=== PATIENT | male | born 1955 | race Caucasian/White ===

== ENCOUNTER → 2024-05-03 12:35 | Outpatient (REF) | payer MEDICARE, OTHER, SELFPAY | LOC: HWRAD 12:35 | PROVIDERS: ATTENDING PHYSICIAN Nurse Practitioner; FAMILY PHYSICIAN Internal Medicine | DX: J01.10 Acute frontal sinusitis, unspecified (principal); J20.9 Acute bronchitis, unspecified | CPT/HCPCS: 71046 ==

== ENCOUNTER 2024-06-03 00:15 | Inpatient (IN) | payer MEDICARE, OTHER, SELFPAY ==
[2024-06-02 21:42] VITALS: BP 147/81; BMI 38.6
[2024-06-02] MEDS: NSS 1000 IV (21:45)
[2024-06-02 22:00] VITALS: BP 145/99
[2024-06-02 22:11] LABS: % Basophils 0.4 % (0-2); % Immature Granulocytes 0.5 % (0-0.5); % Lymphocytes 4.1 % (20.5-51.1); % Monocytes 8.3 % (1.7-9.3); % Neutrophils 86.7 % (42.2-75.2); Absolute Basophils 0.1 10^3/uL (0-0.2); Absolute Immature Granulocytes 0.1 10^3/uL (0-0.05); Absolute Lymphocytes 0.6 10^3/uL (1.2-3.4); Absolute Monocytes 1.3 10^3/uL (0.1-0.6); Hematocrit 36.6 % (39.0-52.0); Hemoglobin 12.4 g/dL (13.0-18.0); Mean Corp Hgb Conc. 33.9 g/dL (33.0-37.0); Mean Corpuscular Hgb 29.5 pg (27.0-31.0); Mean Corpuscular Volume 86.9 fL (80.0-94.0); Nucleated Red Blood Cells % 0 % (-); Platelet Count 252 10^3/uL (130-400); Red Blood Cell Count 4.21 10^6/uL (4.70-6.10); Red Cell Dist. Width 14.2 % (11.5-14.5); White Blood Cell Count 15.1 10^3/uL (4.8-10.8)
--- NOTE | 2024-06-02 22:12 | ED.GENMED ---
History of Present Illness
<Reyes Morris PA-C - Last Filed: 06/02/24 23:22>
General
Chief Complaint: Weakness
Source: patient
Exam Limitations: none
Time Seen by Provider: 06/02/24 21:46
History of Present Illness
History of Present Illness:
68-year-old male type I diabetic presents via EMS from home with generalized weakness. He also states been having trouble controlling his blood sugars. He denies any notable symptoms of cough runny nose shortness of breath vomiting abdominal pain.
He denies a rash. No other complaints at this time
Phy Exam
<Reyes Morris PA-C - Last Filed: 06/02/24 23:22>
Physical Exam
Physical Exam:
General: Well-appearing male no acute respiratory distress
HEENT: Normocephalic atraumatic
Heart: Tachycardic but regular
Lungs: Clear no wheeze
Extremities: No cyanosis mild pitting edema bilateral lower extremities
Skin is warm no rash
Abdomen is soft nontender
Sepsis
<Reyes Morris PA-C - Last Filed: 06/02/24 23:22>
Sepsis Screening
Sepsis Assessment: Sepsis
Sepsis Screen
Sepsis Screen: Sepsis
Date: 06/02/24
Time: 23:22
<Bonnie Rodriguez MD - Last Filed: 06/02/24 23:26>
Sepsis Screen
Sepsis Screen: Sepsis
Date: 06/02/24
Time: 23:23
Course
<Reyes Morris PA-C - Last Filed: 06/02/24 23:22>
Orders/Labs/Results
Orders:
Orders
06/02/24 21:41
Electrocardiogram (*1) Urgent
Reason for Study: Tachycardia
06/02/24 21:42
EKG- Treatment ONCE
06/02/24 21:53
Complete Blood Count/With Diff Urgent
Comprehensive Metabolic Panel Urgent
06/02/24 22:11
CR Chest - 2 Views Urgent
Comment:
Reason For Exam: cough, fever
06/02/24 22:13
Acetaminophen [Tylenol] 1,000 mg PO NOW STA
06/02/24 22:15
COVID-19 Antigen Urgent
Source: Nasal Swab
Lactic Acid Q4H
Comment: CANCEL 2nd LACTIC ACID IF 1st LACTIC ACID IS LESS THAN 2
Urinalysis Reflex To Culture Urgent
Date Specimen was Collected: 06/02/24
Time Specimen was Collected: 22:14
Urine Microscopic Reflex Cult Urgent
Influenza A+B Rapid Molecular Urgent
ДМИТРИЙ Source: Nasal Swab
Specimen Description:
06/02/24 22:22
Blood Culture Q30M
ДМИТРИЙ Source: Blood/Venous
Specimen Description:
Blood Culture Q30M
ДМИТРИЙ Source: Blood/Venous
Specimen Description:
06/02/24 23:16
Piperacillin/Tazo 4.5 Gram [Zosyn] 4.5 gram in 100 ml IV NOW
06/02/24 23:22
Vancomycin [Vancocin] 2,000 mg 0.9% Sodium Chloride 500 ml [Nss] 500 ml IV NOW
Abnormal Lab Results
06/02/24 06/02/24
21:53 22:15
WBC 15.1 H 10^3/uL
(4.8-10.8)
RBC 4.21 L 10^6/uL
(4.70-6.10)
Hgb 12.4 L g/dL
(13.0-18.0)
Hct 36.6 L %
(39.0-52.0)
Abs Immat Gran (auto) 0.1 H 10^3/uL
(0-0.05)
Absolute Neuts (auto) 13.0 H 10^3/uL
(1.4-6.5)
Absolute Lymphs (auto) 0.6 L 10^3/uL
(1.2-3.4)
Absolute Monos (auto) 1.3 H 10^3/uL
(0.1-0.6)
Neutrophils % 86.7 H %
(42.2-75.2)
Lymphocytes % 4.1 L %
(20.5-51.1)
Sodium 134 L mmol/L
(135-145)
Carbon Dioxide 21 L mmol/L
(22-30)
Glucose 396 H mg/dl
(70-99)
Urine Ketones 3+ A
(Negative)
Ur Occult Blood Reflex 2+ A
(Negative)
Urine Bacteria (Reflex) Few A
(Negative)
Urine Glucose 4+ A
(Negative)
Urine Albumin (Reflex) 3+ A
(Neg - Trace)
06/02/24 21:53
06/02/24 21:53
Vital Signs
Initial and Last Documented VS:
Initial Vital Signs
Temp Pulse Resp BP Pulse Ox
101.4 F H 113 19 147/81 94
06/02/24 21:42 06/02/24 21:42 06/02/24 21:42 06/02/24 21:42 06/02/24 21:42
Last Documented Vital Signs
Temp Pulse Resp BP Pulse Ox
98.5 F 104 27 159/60 95
06/02/24 23:12 06/02/24 23:15 06/02/24 23:15 06/02/24 23:00 06/02/24 23:15
<Bonnie Rodriguez MD - Last Filed: 06/02/24 23:26>
Orders/Labs/Results
Orders:
Orders
06/02/24 21:41
Electrocardiogram (*1) Urgent
Reason for Study: Tachycardia
06/02/24 21:42
EKG- Treatment ONCE
06/02/24 21:53
Complete Blood Count/With Diff Urgent
Comprehensive Metabolic Panel Urgent
06/02/24 22:11
CR Chest - 2 Views Urgent
Comment:
Reason For Exam: cough, fever
06/02/24 22:13
Acetaminophen [Tylenol] 1,000 mg PO NOW STA
06/02/24 22:15
COVID-19 Antigen Urgent
Source: Nasal Swab
Lactic Acid Q4H
Comment: CANCEL 2nd LACTIC ACID IF 1st LACTIC ACID IS LESS THAN 2
Urinalysis Reflex To Culture Urgent
Date Specimen was Collected: 06/02/24
Time Specimen was Collected: 22:14
Urine Microscopic Reflex Cult Urgent
Influenza A+B Rapid Molecular Urgent
ДМИТРИЙ Source: Nasal Swab
Specimen Description:
06/02/24 22:22
Blood Culture Q30M
ДМИТРИЙ Source: Blood/Venous
Specimen Description:
Blood Culture Q30M
ДМИТРИЙ Source: Blood/Venous
Specimen Description:
06/02/24 23:16
Piperacillin/Tazo 4.5 Gram [Zosyn] 4.5 gram in 100 ml IV NOW
06/02/24 23:22
Vancomycin [Vancocin] 2,000 mg 0.9% Sodium Chloride 500 ml [Nss] 500 ml IV NOW
Abnormal Lab Results
06/02/24 06/02/24
21:53 22:15
WBC 15.1 H 10^3/uL
(4.8-10.8)
RBC 4.21 L 10^6/uL
(4.70-6.10)
Hgb 12.4 L g/dL
(13.0-18.0)
Hct 36.6 L %
(39.0-52.0)
Abs Immat Gran (auto) 0.1 H 10^3/uL
(0-0.05)
Absolute Neuts (auto) 13.0 H 10^3/uL
(1.4-6.5)
Absolute Lymphs (auto) 0.6 L 10^3/uL
(1.2-3.4)
Absolute Monos (auto) 1.3 H 10^3/uL
(0.1-0.6)
Neutrophils % 86.7 H %
(42.2-75.2)
Lymphocytes % 4.1 L %
(20.5-51.1)
Sodium 134 L mmol/L
(135-145)
Carbon Dioxide 21 L mmol/L
(22-30)
Glucose 396 H mg/dl
(70-99)
Urine Ketones 3+ A
(Negative)
Ur Occult Blood Reflex 2+ A
(Negative)
Urine Bacteria (Reflex) Few A
(Negative)
Urine Glucose 4+ A
(Negative)
Urine Albumin (Reflex) 3+ A
(Neg - Trace)
06/02/24 21:53
06/02/24 21:53
Vital Signs
Initial and Last Documented VS:
Initial Vital Signs
Temp Pulse Resp BP Pulse Ox
101.4 F H 113 19 147/81 94
06/02/24 21:42 06/02/24 21:42 06/02/24 21:42 06/02/24 21:42 06/02/24 21:42
Last Documented Vital Signs
Temp Pulse Resp BP Pulse Ox
98.5 F 104 27 159/60 95
06/02/24 23:12 06/02/24 23:15 06/02/24 23:15 06/02/24 23:00 06/02/24 23:15
<Reyes Morris PA-C - Last Filed: 06/02/24 23:22>
MDM/Problems Addressed
Differential Diagnosis Includes:
Generalized weakness. Difficulty controlling blood sugars at home. Temperature here on arrival is 101.4. He is tachycardic. Concern for possible sepsis will look for source with urine, chest x-ray COVID and flu labs and cultures.
Fluids ordered. Tylenol will be ordered for fever
<Reyes Morris PA-C - Last Filed: 06/02/24 23:22>
*Critical Care Note
Total Time (30-74mins, 75-104mins- exclusive of procedures): Not Applicable
<Reyes Morris PA-C - Last Filed: 06/02/24 23:22>
Update Note
Update Note:
Workup shows leukocytosis with left shift. Chest x-ray reviewed personally shows no obvious infiltrate pending official radiology report. Urinalysis without obvious infection but culture is pending. Blood cultures are pending. He is an
insulin-dependent diabetic concern for sepsis. Unclear origin at this time but no concerning findings of meningitis. His abdomen exam is benign. Fluids Tylenol and vancomycin and Zosyn ordered. Discussed with ED attending and will admit
ED Attending Note
<Reyes Morris PA-C - Last Filed: 06/02/24 23:22>
-
Portions of this chart may have been created with voice recognition software.� Occasional wrong word or��sound alike� substitutions may have occurred due to the inherent limitations of voice recognition software.
<Bonnie Rodriguez MD - Last Filed: 06/02/24 23:26>
ED Attending Note
Patient seen and examined by attending physician: Yes
I performed the substantive portion of visit, reviewed & personally made and approve the management plan that is documented in note by myself or PACO.: Yes
ED Attending Note:
68 yr old male with abnl (elevated and decreased) blood sugars recently, noted to be weak this afternoon such that unable to get him up without assistance. Pt noted to have fever here. Pt says he feels fine, but is tired. He denies
cough/st/rhinorrhea/neck pain/headache/rash/abd pain/n/v/cp/sob or other complnts. Labs noted leukocytosis with left shift...tachycardic, tachypneic...fever...all s/o sepsis, ?source. No skin fdingins, no pna, no uti, no meningismus, abd soft/nt.
While hyperglycemic, no AG to suggest DKA> Will medicate with sepsis protocol, close obs.
Discharge Plan
Departure
Patient Disposition: Admit
Date of Disposition: 06/02/24
Time of Disposition: 23:22
Presentation/result/management discussed w/ accepting MD/DO: Hospitalist
Discharge Problem:
Sepsis
Prescriptions:
No Action
furosemide 20 MG tablet
20 mg PO DAILYPRN PRN (Reason: leg swelling,edema,increased water wt)
ramipril 10 MG capsule
10 mg PO HS
metoprolol tartrate 25 MG tablet
25 mg PO BID
hydrocodone-acetaminophen 5-325 mg tablet
1 tab PO Q6HPRN PRN (Reason: back pain)
aspirin 81 mg Tablet,Delayed Release (Dr/Ec)
81 mg PO HS
simvastatin 40 mg Tablet
40 mg PO HS
Humulin N NPH U-100 Insulin 100 unit/mL suspension
50 unit SC HS
levothyroxine 200 mcg Tablet
200 mcg PO DAILY
insulin lispro [Humalog U-100 Insulin] 100 unit/mL solution
0 sliding scale dose SC MEALS
metaxalone 800 mg tablet
800 mg PO TIDPRN PRN (Reason: back pain)
Prevagen
1 tab PO DAILY
acetaminophen 325 MG tablet
650 mg PO Q4HPRN PRN (Reason: mild pain)
Eliquis 5 mg tablet
5 mg PO BID Qty: 60 2RF
Rx Instructions:
Start after 10mg BID pills finished
Eliquis 5 mg tablet
10 mg PO BID Qty: 28 0RF
Rx Instructions:
Start Taking this script first.
Referrals:
Dallas Rangel MD [Family Provider] -
Interventions
Interventions:
*Risk Screen - Suicide Last Done: 06/02/24 21:43
*General Assessment Last Done: 06/02/24 21:43
*Neglect/Abuse Screening Last Done: 06/02/24 21:43
*ED- Fall Risk Assessment Last Done: 06/02/24 21:43
*ED COVID-19 Vaccine History Last Done: 06/02/24 21:43
ED- Cardiac Assessment Last Done: 06/02/24 22:00
ED- Neurological Assessment Last Done: 06/02/24 22:00
ED- Pulmonary Assessment Last Done: 06/02/24 22:00
Discharge Date and Time
Print Language: TAMAZIGHT
[2024-06-02 22:14] LABS: ALT (SGPT) 24 U/L (0-50); AST (SGOT) 27 U/L (17-59); Albumin 4.1 g/dl (3.5-5.0); Alkaline Phosphatase 122 U/L (38-126); Blood Urea Nitrogen 19 mg/dl (9-20); Calcium 9.6 mg/dl (8.4-10.2); Carbon Dioxide 21 mmol/L (22-30); Chloride 102 mmol/L (98-107); Estimated Creatinine Clearance > 125 ml/min; Glucose 396 mg/dl (70-99); Potassium 4.4 mmol/L (3.5-5.1); Sodium 134 mmol/L (135-145); Total Bilirubin 1.1 mg/dl (0.2-1.3); Total Protein 6.9 g/dl (6.3-8.2); eGFR > 60.00
[2024-06-02] MEDS: TYLENOL 1000 MG PO (22:25)
[2024-06-02 22:31] LABS: Urine Albumin 3+ (Neg - Trace); Urine Bilirubin Negative (Negative); Urine Character Clear (Clear); Urine Color Yellow; Urine Glucose 4+ (Negative); Urine Ketone 3+ (Negative); Urine Leukocyte Negative (Negative); Urine Nitrite Negative (Negative); Urine Occult Blood 2+ (Negative); Urine Urobilinogen Negative (Neg - 1+)
[2024-06-02 22:38] LABS: Urine Red Blood Cell 0-2 /HPF (0-2); Urine Squamous Cell 0-2 /LPF (Few)
[2024-06-02 22:39] LABS: Urine Bacteria Few (Negative)
[2024-06-02 22:42] LABS: Lactic Acid 1.1 mmol/L (0.7-2.0)
[2024-06-02 22:46] LABS: COVID-19 Antigen Negative (Negative)
[2024-06-02 23:00] VITALS: BP 159/60
[2024-06-02] MEDS: ZOSYN 100 IV (23:22)
--- NOTE | 2024-06-02 23:23 | HPS.HSE ---
Family Physician
-
Family Physician: Dallas Rangel
Chief Complaint
-
Confusion
History of Present Illness
68-year-old male type 2 diabetic, PE, hypothyroidism, hypertension, hyperlipidemia presented to us with generalized weakness, confusion today. Patient was shaking and sweating. Patient had a loose stool a week ago. Patient denied any headache,
dizziness or syncope. Patient denied any fever, chills, chest pain, short of breath, cough. Patient denied any abdominal pain, nausea, vomiting or diarrhea. Patient denied dysuria hematuria. Chronic lower extremities edema as well as left lower
extremity discoloration
Upon arrival he was noted sepsis. Patient received Vanco and Zosyn in the ER. Admitted for further management
Medical History
Past Medical History
Past Medical History: Reports Other
Additional Past Medical History:
Hypothyroidism
Sleep apnea
PE
Prostate cancer
Hypertension
Hyperlipidemia
Type 2 diabetes
Past Surgical History: Reports Other
Additional Past Surgical History:
Left knee replacement
Left amputation
Vasectomy
Prostate removed
Social History
Tobacco: Non-smoker
Alcohol: None
Drug: None
Personal:
Living: With Family
Family History
Family History: Not pertinent
Allergies / Home Medications
Allergies reflects when Allergies were last updated in [employer].
Home Medications with original date entered in [employer]
Allergy/Medication List:
Allergies
Allergy/AdvReac Type Severity Reaction Status Date / Time
pollen extracts Allergy Hayfever Verified 04/05/22 08:43
Home Medications
furosemide 20 mg tablet 20 mg PO DAILYPRN PRN leg swelling,edema,increased water wt 10/22/14
metoprolol tartrate 25 mg tablet 25 mg PO BID Heart disease/condition 10/22/14
ramipril 10 mg capsule 10 mg PO HS Blood pressure 10/22/14
aspirin 81 mg tablet,delayed release 81 mg PO HS Blood clot prevention/tx 12/11/21
insulin NPH isoph U-100 human 100 unit/mL subcutaneous suspension (Humulin N NPH U-100 Insulin (isophane susp)) 60 unit SC HS Diabetes 12/11/21
insulin lispro 100 unit/mL subcutaneous solution (Humalog U-100 Insulin) 0 sliding scale dose SC MEALS Diabetes 12/11/21
levothyroxine 200 mcg tablet 200 mcg PO DAILY Thyroid 12/11/21
simvastatin 40 mg tablet 40 mg PO HS High cholesterol 12/11/21
apixaban 5 mg tablet (Eliquis) 2.5 mg PO BID 06/02/24
Review of Systems
-
Constitutional: Reports No Symptoms
EENT: Reports No Symptoms
Respiratory: Reports No Symptoms
Cardiac: Reports No Symptoms
Abdomen/GI: Reports No Symptoms
: Reports No Symptoms
Musculoskeletal: Reports No Symptoms
Skin: Reports No Symptoms
Neurological: Reports Weakness
Endocrine: Reports No Symptoms
Hematologic/Lymphatic: Reports No Symptoms
Psych: Reports No Symptoms
Physical Exam
Vital Signs
Vital Signs
Temp Pulse Resp BP Pulse Ox
98.5 F 104 27 159/60 95
06/02/24 23:12 06/02/24 23:15 06/02/24 23:15 06/02/24 23:00 06/02/24 23:15
Physical Exam
General: Well Developed, Well Nourished and No Apparent Distress
HEENT: NormoCephalic, Moist mucous membranes and Atraumatic
Respiratory: Clear
Cardiac: S1/S2 and Regular Rhythm; No Murmur or Rub
GI: Soft, Non Tender, Non Distended and Normal Bowel Sounds; No Organomegaly
Rectal: Deferred by Provider
Musculoskeletal: No Clubbing, No Cyanosis and No Edema
Skin: No Rash
Neuro: AO x 3, Nonfocal/grossly intact and Facial Droop
Laboratory Results
-
04/12/25 21:53
06/02/24 21:53
Laboratory Results
Lactic Acid 1.1 mmol/L (0.7-2.0) 06/02/24 22:15
Total Bilirubin 1.1 mg/dl (0.2-1.3) 06/02/24 21:53
AST 27 U/L (17-59) 06/02/24:53
ALT 24 U/L (0-50) 06/02/24 21:53
Alkaline Phosphatase 122 U/L (38-126) 06/02/24 21:53
Data Reviewed
-
Lab Data: Labs Reviewed by me
Impression/Plan
-
# Generalized weakness/metabolic encephalopathy like, secondary to sepsis unclear cause
-Sepsis as evidenced by temp of 101.4-, WBCs 15K, tachycardia
- Tylenol as needed for fever or pain Vanco and Zosyn in ER
- Blood culture sent from ER
- Chest x-ray pending
- COVID-negative, flu negative
- Will obtain CT of abdomen pelvis
- Vanco and Zosyn continued
- PT/OT consulted
- ID consulted
# Facial droop
- Will obtain CT of head
# Type 2 diabetes with hyperglycemia
- Blood sugar elevated in 300s
- Patient received a dose of regular 5 units in ER
-Will continue NPH-, sliding scale
- Carb controlled diet
# History of PE
- Eliquis continued
#Hypothyroidism
-Continue home dose levothyroxine
# Essential hypertension
-Continue metoprolol, r ramipril
DVT PPx -Eliquis
Patient is DNR
[2024-06-02] MEDS: NSS 1500 ML IV (23:48)
[2024-06-02] MEDS: VANCOCIN 540 MG IV (23:48)
--- NOTE | 2024-06-02 23:50 | W.PN.UPDATE ---
Update Note
Progress Note Update
Patient seen in conjunction with SAMEER. I agree with the findings and physical. I concur with assessment and plan listed otherwise.
This is a 68-year-old who has past medical history significant for BPH status post surgery, insulin-dependent diabetes, history of PE currently on prophylactic Eliquis who presents to the emergency department with weakness confusion and found to be
febrile.
According to spouse for approximately 1 week the patient's glucose has been poorly controlled. He states he takes NPH 60 units at night and then sliding scale during the day between 10 and 20 units of short acting insulin. Spouse reported that in
particular today the patient had trouble getting out of his seat. He is usually able to get out of his seat. Patient did undergo physical therapy yesterday and was well at that time. He reports chronic incontinence which is unchanged. He denies
any dysuria, abdominal pain, pelvic pain, flank pain fevers chills or sweats. He denies any rash. He has chronic left lower extremity swelling which she reports that is unchanged. He denies any joint swelling tenderness or erythema.
Patient denies any cough, shortness of breath, dyspnea on exertion, runny nose, sore throat, nausea vomiting or diarrhea. Patient denies any headache. Denies any neck pain. He denies any known sick contacts. He apparently had an episode of
diarrhea about a week ago.
In the emergency department he had a Tmax of 101.5, blood pressure was 160/60 with a pulse of 104. Respiratory was 27. He was satting 95% on room air. Chest x-ray shows no acute infiltrates. UA shows ketones and glucosuria but no evidence of
urinary tract infection. He has leukocytosis to 15, hemoglobin and platelets were normal. Electrolytes were normal. Glucose was elevated at 396.
Examination he does have mild generalized weakness. He has a left facial droop which improves when moving his face. He has a slight right pronator drift. There is no significant weakness in the upper or lower extremities bilaterally. Sensation
was intact. He has no focal tenderness either on the abdomen or pelvis or on the skin or joints. Auscultation of the lungs were clear.
Assessment and plan
Patient with fevers, weakness confusion consistent with mild toxic metabolic encephalopathy likely secondary to infection. So far investigation in the emergency department as not to determine the source of infection. However given his elevated
glucose, urinary ketones, fever and leukocytosis there is concern for possible bacterial infection. Cannot rule out as of yet undetermined viral infection.
- Admit to telemetry
- Blood cultures have been sent
- UA negative, still check urine culture
- Flu COVID-negative
- Check MRSA swab
- Continue empiric vancomycin and Zosyn at this time
- Chest is clearing of both on auscultation x-ray that I doubt occult pneumonia, will further check with the procalcitonin
- CT of the abdomen and pelvis with IV contrast
- ID consultation
DM II -on NPH 60 units at bedtime and sliding scale between 10 and 20 units of lispro ac. Has a glucose of 396 with urinary ketones and glucosuria. Bicarb is normal.
- Will give 5 units of regular insulin now
- Status post 2.5 L normal saline, will continue with IV normal saline at 100 cc an hour for now
- Repeat fingersticks 1 hour after insulin, if elevated we can reduce the insulin check pH for evidence of DKA
- Otherwise we will continue with NPH 40 units at bedtime, moderate sliding scale, may need Premeal insulin depending on values
- Diabetic diet-continue statin
Mild facial droop -family unaware. Speech is clear. Mild pronator drift on the right on exam. No other focal deficits
- CT head for now
- on eliquis, continue for now
- suspect more TME vs CVA
DVT PPX - on apixaban
Code status - DNR
[2024-06-03] VITALS (8 sets, daily range): BP systolic 135–183; BP diastolic 50–77; BMI 38.2
--- NOTE | 2024-06-03 01:26 | PTCARENOTE ---
Pt arrived from the Ed via stretcher. Patient ambulated into the room. AAOx3, VSS. Patient arrived with vancomycin infusing. No complaints of pain at this time. Incontinent of urine. Patient oriented to the room. Updated on plan of care. Bed alarm
in place. Fall risk and DNR bracelet applied. Call williamson is within reach.
[2024-06-03] MEDS: NSS 1000 IV ×2 (01:29→12:21)
[2024-06-03 01:33] LABS: Glucose - Point of Care 591 mg/dl (70-99)
[2024-06-03 02:50] LABS: Glucose 494 mg/dl (70-99)
[2024-06-03] MEDS: NOVOLOG FLEXPEN 20 UNITS SC (02:56)
[2024-06-03 05:01] LABS: Glucose - Point of Care > 600 mg/dl (70-99)
[2024-06-03] MEDS: SYNTHROID 200 MCG PO (05:03)
[2024-06-03] MEDS: ZOSYN 50 IV ×4 (05:04→23:09)
[2024-06-03 05:59] LABS: Hematocrit 34.9 % (39.0-52.0); Hemoglobin 11.6 g/dL (13.0-18.0); Mean Corp Hgb Conc. 33.2 g/dL (33.0-37.0); Mean Corpuscular Hgb 29.1 pg (27.0-31.0); Mean Corpuscular Volume 87.7 fL (80.0-94.0); Mean Platelet Volume 9.8 fL (7.4-10.4); Platelet Count 242 10^3/uL (130-400); Red Blood Cell Count 3.98 10^6/uL (4.70-6.10); Red Cell Dist. Width 14.3 % (11.5-14.5); White Blood Cell Count 12.1 10^3/uL (4.8-10.8)
[2024-06-03 06:02] LABS: Glucose 352 mg/dl (70-99)
[2024-06-03] MEDS: NOVOLOG FLEXPEN 15 UNITS SC (06:23)
[2024-06-03 08:18] LABS: Glucose - Point of Care 290 mg/dl (70-99)
[2024-06-03] MEDS: NOVOLOG FLEXPEN-MODERATE RESISTANCE 5 UNITS SC (08:20)
[2024-06-03] MEDS: LOPRESSOR 25 MG PO ×2 (08:21→20:19)
[2024-06-03] MEDS: ELIQUIS 2.5 MG PO ×2 (08:21→20:19)
[2024-06-03 09:34] LABS: Glycohemoglobin (HgbA1c) 8.8 % (4.0-5.6)
--- NOTE | 2024-06-03 09:35 | W.PN.HOSP.TC ---
Today's Communication/Plan
-
Empiric antibiotics with Vanc Zosyn
Follow up culture data
Control sugar
Assessment / Plan
Assessment / Plan
NAD
Scleral Anicteric
DMM
No JVD
CTABL
RRR, S1/S2
Soft, NT, ND, BS+, umbilical hernia
Warm, Dry, LLE chronic venostasis changes
AAOx3, no focal neurological deficits on my exam, 5/5 motor strength in bilateral upper and lower extremities
Calm
Sepsis with unclear etiology
- CT does demonstrate concerning findings for pyelonephritis however no CVA tenderness, urine analysis not consistent as there is no white blood cells leuks/nitrates but few bacteria. Additionally, denies dysuria, frequency, suprapubic tenderness
- COVID flu negative
- Follow-up blood cultures urine culture
- Continue empiric Vanco Zosyn coverage
Chronic CVA noted on CT,�small
- Unaware of this diagnosis
- Smoking history, former quit in the 90s longstanding history of diabetes, along with htn
- Already on aspirin and moderate intensity statin
- Will check lipid profile A1c, depending on LDL may need to be changed to high intensity
Hypothyroidism
- Continue levothyroxine
History of PE
- On Eliquis 2.5 mg p.o. twice daily
Type 2 diabetes with hyperglycemia likely related to underlying acute infectious process
- Longstanding, A1c
- Follows with Dr. Lopez as outpatient
- Continue NPH sliding scale
- Goal inpatient blood glucose 140-180
- CCDiet
Hyponatremia
-Encourage po intake
-Repeat BMP in the AM
Anticipated Discharge: > 48 hours
Subjective/Interval History
-
Date of Service: June 03, 2024
Seen and examined. No new complaints. No acute overnight events.
Seen at bedside eating breakfast.
States he is able to stand up now and walk to the bathroom
Presented to the hospital for inability to stand out for approximately 4 hours of weakness
No dysuria no diarrhea no shortness of breath cough
Reviewed head CT with him notified him about small CVA and which she was unaware of
We went over what the difference between ischemic CVA and hemorrhagic CVA was
He verbalized understanding
Objective Data
-
Labs:
Laboratory Results
06/02/24 06/03/24 06/03/24
21:53 02:04 05:24
WBC 15.1 H 12.1 H
Hgb 12.4 L 11.6 L
Hct 36.6 L 34.9 L
Plt Count 252 242
Sodium 134 L
Potassium 4.4
Chloride 102
Carbon Dioxide 21 L
BUN 19
Creatinine 0.8
Glucose 396 H 494 H* 352 H
Calcium 9.6
Total Bilirubin 1.1
AST 27
ALT 24
Alkaline Phosphatase 122
Vital Signs:
Vital Signs
Temp Pulse Resp BP Pulse Ox
98.1 F 78 18 146/64 98
06/03/24 07:22 06/03/24 08:21 06/03/24 07:22 06/03/24 08:21 06/03/24 07:22
I&O
06/02/24 06/03/24 06/04/24
06:59 06:59 06:59
Intake Total 530 / 530
Output Total 1750 / 1750
Balance -1220 / -1220
--- NOTE | 2024-06-03 11:05 | PHA.VAN.IN ---
Assessment
- Assessment
Renal Function: Appears similar to baseline
Maximum Temperature: 101.4 F
Concomitant Antimicrobials: PIPERACILLIN/TAZOBACTAM
AUC Dosing Plan
- Dosing Variables
Dosing Weight (kg): 103
Dosing CrCl (ml/min): 125
Vd coefficient (L/kg): 0.7
- Empiric Dosing
Initial / Loading Dose: VANCO 2000MG X1
Maintenance Regimen: VANCO 1250MG Q8H
Estimated AUC (mcg*h/mL): 507
Estimated Peak (mcg*h/mL): 29.9
Estimated Trough (mcg/ml): 14.0
Estimated Half Life (H): 6.4
- Monitoring
No levels ordered at this time: CONSIDER LEVEL IN NEXT FEW DAYS
Pharmacokinetics Vancomycin I
- -
Patient Age: 68
Patient Sex: Male
Vancomycin Day #: 1
Indication: Pulmonary/Respiratory
Requesting Provider: DR. DIAS
Height / Weight:
Height 6 ft 2 in
Actual Weight 134.887 kg
IBW in k
Adjusted BW in k
Pertinent Past Medical History: OBESITY (BMI 38), DMT2
- Vital Signs / Lab Results
Temp Pulse Resp BP Pulse Ox
98.1 F 78 18 146/64 98
06/03/24 07:22 06/03/24 08:21 06/03/24 07:22 06/03/24 08:21 06/03/24 10:11
Lab Results - Hematology
06/02/24 06/03/24
21:53 05:24
WBC 15.1 H 12.1 H
Lab Results - Chemistry
06/02/24
21:53
BUN 19
Creatinine 0.8
Estimated Creat Clear > 125
Albumin 4.1
06/02/24 06/03/24 06/03/24
22:15 01:59 05:14
Lactic Acid 1.1 1.0 Cancelled
06/03/24 06/03/24
09:14 13:14
Lactic Acid Cancelled Cancelled
Lab Results - Urine
06/02/24
22:15
Urine Nitrite (Reflex) Negative
Leukocyte Esterase Rfl Negative
Urine WBC (Reflex) 3-5
Ur Squamous Epith Cells 0-2
Urine Bacteria (Reflex) Few A
Microbiology Results
06/02/24 22:15 Influenza Types A & B ([facility]ASS[facility]) - Final
Nasal Swab Negative for Influenza A & B, NAAT
Negative results must be combined with clinical observations
and patient history.
Nucleic Acid Amplification test (NAAT)performed on the
[employer] platform.
[2024-06-03 12:13] LABS: Glucose - Point of Care 314 mg/dl (70-99)
[2024-06-03] MEDS: NOVOLOG FLEXPEN-MODERATE RESISTANCE 7 UNITS SC (12:21)
[2024-06-03] MEDS: VANCOCIN 275 MG IV (13:00)
--- NOTE | 2024-06-03 13:08 | CM ---
Alert awake oriented patient who lives with his Anne in a 2 story home with 2 steps to enter and 14 steps to bed bathroom. He is independent in driving and all ADLs.He uses a cane.
He has had IV infusion at home in past . No SNF hx.
Pharmacy [facility] [place]
PCP DR Rangel
PCP Home no needs
--- NOTE | 2024-06-03 16:25 | CON.ID ---
Consultation
-
Date/Time Consultation Requested: 06/02/24 2349
Date/Time Consultation Performed: 06/03/24 15:25
Requesting Provider: LOW Crockett
Performing Provider: Dr Jones
Reason for Consultation: sepsis
Chief Complaint / Past History
Chief Complaint
confusion
History of Present Illness
Mr Davis is a 68 year old male with history of L great toe osteomyelitis s/p amputation, DM2, class II obesity who presented here yesterday for weakness and confusion. No hardwear. Patient had a loose stool a week ago. Patient denied any
headache, dizziness or syncope. Patient denied any fever, chills, chest pain, short of breath, cough. Patient denied any abdominal pain, nausea, vomiting or diarrhea. Patient denied dysuria hematuria. Chronic lower extremities edema as well as
left lower extremity discoloration. Toe amputation site fully healed, no erythema, warmth, tenderness, dehiscence. 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 No significant time outside for the last two weeks
Since arrival here tmax 101.4 - no further fevers, bp overall hypertensive, wbc initially 15 now 12, hgb 11.6, plt 242, L shift present on arrival, cr 0.8, a1c 8.8, lactic acid 1.1, lfts wnl, ua no pyuria, covid ag negative, ct a/p with IV contrast:
Asymmetric prominence of the right ureter and areas of patchy heterogeneous right renal enhancement. Findings may indicate ascending infection and possible right pyelonephritis. Suggest correlation with urinalysis. No findings to suggest obstructing
renal calculus, CXR: no acute process, mrsa screen negative, blood cultures x2 no growth to date, influenza swab negative, currently on vancomycin and zosyn
Past History
Additional Past Medical History:
Hypothyroidism
Sleep apnea
PE
Prostate cancer
Hypertension
Hyperlipidemia
Type 2 diabetes
Additional Past Surgical History:
Left knee replacement
Left amputation
Vasectomy
Prostate removed
Allergy History:
pollen extracts Allergy (Verified 04/05/22 08:43)
Hayfever
Medications Reviewed: Yes
Social History
Tobacco: Non-Smoker
Alcohol: None
Drug: None
Family History
Family History: Not Pertinent
Review of Systems
Review of Systems
General: Fever and Chills
All systems: All other systems were reviewed and were negative
Vital Signs
Temp Pulse Resp BP Pulse Ox
98.2 F 78 20 157/62 98
06/03/24 15:01 06/03/24 15:01 06/03/24 15:01 06/03/24 15:01 06/03/24 15:01
Physical Exam
Physical Exam
Constitutional: No Acute Distress and Chronically Ill
Cardiovascular: Regular Rate and S1/S2; Negative Murmur or Rub
Pulmonary: Clear and Symmetric; Negative Wheezes, Rales or Rhonchi
Gastrointestinal: Soft, Non Tender, Non Distended and Normal Bowel Sounds
Extremities: Other (right great toe amputation site fully healed no erythema, warmth or drainage)
Skin: Warm and Dry; Negative Rash or Jaundice
Lab / Diagnostic Study Results
06/03/24 05:24
06/03/24 05:24
Abs Immat Gran (auto) 0.1 10^3/uL (0-0.05) H 06/02/24 21:53
Absolute Neuts (auto) 13.0 10^3/uL (1.4-6.5) H 06/02/24 21:53
Absolute Lymphs (auto) 0.6 10^3/uL (1.2-3.4) L 06/02/24 21:53
Absolute Monos (auto) 1.3 10^3/uL (0.1-0.6) H 06/02/24 21:53
Absolute Basos (auto) 0.1 10^3/uL (0-0.2) 06/02/24 21:53
Immature Gran % 0.5 % (0-0.5) 06/02/24 21:53
Neutrophils % 86.7 % (42.2-75.2) H 06/02/24 21:53
Lymphocytes % 4.1 % (20.5-51.1) L 06/02/24 21:53
Monocytes % 8.3 % (1.7-9.3) 06/02/24 21:53
Eosinophils % 0.0 % (0-6) 06/02/24 21:53
Basophils % 0.4 % (0-2) 06/02/24 21:53
Lactic Acid Cancelled 06/03/24 13:14
Ur Squamous Epith Cells 0-2 /LPF (Few) 06/02/24 22:15
Microbiology Results
Micro:
06/03/24 11:40 Nasal Screen MRSA (PCR) - Final
Nose MRSA not detected - performed by PCR methodology.
06/02/24 22:15 Influenza Types A & B (CASSY) - Final
Nasal Swab Negative for Influenza A & B, NAAT
Negative results must be combined with clinical observations
and patient history.
Nucleic Acid Amplification test (NAAT)performed on the
[employer] platform.
06/02/24 22:22 Blood Culture - Pending
Blood/Venous
06/02/24 22:22 Blood Culture - Pending
Blood/Venous
Assessment / Plan
Fever
Sepsis
- blood cultures x2 in progress
- physical exam and UA do not correlate with finding of possible pyelonephritis on CT scan
- CXR clear
- influenza/covid negative
- MRSA screen negative
- Xray of the L foot
- continue zosyn
- stopped vancomycin
[2024-06-03 16:31] LABS: Glucose - Point of Care 387 mg/dl (70-99)
[2024-06-03] MEDS: NOVOLOG FLEXPEN-MODERATE RESISTANCE 9 UNITS SC (16:37)
--- NOTE | 2024-06-03 17:58 | FALL ---
Description of Fall:
Unwitness fall, pt room with bed alarm beeping, checked on pt, pt on the floor lying on right side. Pt states trying to use urinal at the edge of the bed but the socks were slippery and started to slip.
Injuries Noted:
no injuries noted. pt denied hitting his head or any pain.
Action Taken:
helped pt back to the bed. checked for any injuries. Vitals taken at this time. MD, charge nurse, and leak gang supervisor notified at this time.
Name of Provider Notified:
Dr. Evert Bryson
[2024-06-03] MEDS: ASPIR LOW (ENTERIC COATED) 81 MG PO (20:19)
[2024-06-03] MEDS: ALTACE 10 MG PO (20:19)
[2024-06-03] MEDS: LIPITOR 20 MG PO (20:19)
[2024-06-03] MEDS: TYLENOL 650 MG PO (20:28)
[2024-06-03 21:12] LABS: Glucose - Point of Care 580 mg/dl (70-99)
[2024-06-03 22:08] LABS: Glucose 388 mg/dl (70-99)
[2024-06-03] MEDS: HUMULIN N KWIKPEN 40 UNITS SC (22:30)
[2024-06-03] MEDS: NOVOLOG FLEXPEN 10 UNITS SC (22:30)
[2024-06-04] VITALS (7 sets, daily range): BP systolic 153–169; BP diastolic 58–75; PULSE 80
[2024-06-04 00:29] LABS: Glucose - Point of Care 373 mg/dl (70-99)
[2024-06-04] MEDS: NSS 1000 IV (01:18)
[2024-06-04 03:35] LABS: Glucose - Point of Care 361 mg/dl (70-99)
[2024-06-04] MEDS: NOVOLOG FLEXPEN 15 UNITS SC ×2 (04:00→17:09)
[2024-06-04] MEDS: SYNTHROID 200 MCG PO (04:00)
[2024-06-04] MEDS: ZOSYN 50 IV ×4 (05:57→23:56)
[2024-06-04 06:19] LABS: Hematocrit 34.8 % (39.0-52.0); Hemoglobin 11.5 g/dL (13.0-18.0); Mean Corpuscular Hgb 29.3 pg (27.0-31.0); Mean Corpuscular Volume 88.8 fL (80.0-94.0); Platelet Count 238 10^3/uL (130-400); Red Blood Cell Count 3.92 10^6/uL (4.70-6.10); Red Cell Dist. Width 14.5 % (11.5-14.5); White Blood Cell Count 8.7 10^3/uL (4.8-10.8)
[2024-06-04 06:45] LABS: Blood Urea Nitrogen 12 mg/dl (9-20); Calcium 9.1 mg/dl (8.4-10.2); Carbon Dioxide 23 mmol/L (22-30); Chloride 108 mmol/L (98-107); Estimated Creatinine Clearance > 125 ml/min; Glucose 277 mg/dl (70-99); HDL Cholesterol 60 mg/dl; LDL Cholesterol, Calculated 57 mg/dl; Sodium 139 mmol/L (135-145); Total Cholesterol 158 mg/dl (50-199); Triglyceride 209 mg/dl (10-149); Very Low Density Lipoprotein 41 mg/dl (0-30); eGFR > 60.00
--- NOTE | 2024-06-04 07:23 | PN.DE.MGMTRT ---
Insulin Management
- -
06/04/2024 Diabetes Management Consult
Patient admitted 06/02 with weakness, confusion - sepsis unknown etiology. PMH PE, HTN, HLD, type 1 diabetes since age 18. Prior to admission was taking 60 units NPH @ HS with SS humalog. A1C 8.8%.
Patient is awake alert and oriented, able to discuss diabetes care. at bedside. Patient states he has type 1 diabetes since age [address] Lopez for diabetes care routinely, last visit April 2024, he states A1C was 7.5 at that time.
Patient has been receiving 40 units NPH @ HS with moderate corrective insulin. Glucose range 290 to 580. Will increase HS NPH to 55 units and start AC novolog 15 units with moderate corrective insulin.
Will follow.
Diabetes History
- -
Type of Diabetes: 1
Pre-Admission Diabetes Regimen
06/04/24
05:52
Creatinine 0.6 L
Lab Results
Hemoglobin A1c 8.8 % (4.0-5.6) H 06/03/24 05:24
Insulin Pump Settings
IP Diabetes Regimen
06/03/24 06/03/24 06/03/24
08:17 12:11 16:29
Glucose
POC Glucose 290 H 314 H 387 H
06/03/24 06/03/24 06/04/24
21:09 21:32 00:27
Glucose 388 H
POC Glucose 580 H* 373 H
06/04/24 06/04/24
03:33 05:52
Glucose 277 H
POC Glucose 361 H
Meal type: Lunch
Meal type: Breakfast
Amount consumed: 100%
Amount consumed: 100%
Patient Education
[2024-06-04 08:13] LABS: Glucose - Point of Care 350 mg/dl (70-99)
[2024-06-04] MEDS: ELIQUIS 2.5 MG PO ×2 (08:24→21:20)
[2024-06-04] MEDS: LOPRESSOR 25 MG PO ×2 (08:24→21:21)
[2024-06-04] MEDS: NOVOLOG FLEXPEN-MODERATE RESISTANCE 3 UNITS SC (08:26)
[2024-06-04] MEDS: NOVOLOG FLEXPEN 10 UNITS SC ×2 (08:27→11:33)
[2024-06-04 08:28] LABS: Glucose - Point of Care 232 mg/dl (70-99)
--- NOTE | 2024-06-04 10:39 | W.PN.HOSP.TC ---
Today's Communication/Plan
-
IV Unasyn
additional aspart 10 units x 1 now; glucose 320
appreciate ID
appreciate DM MOTION PICTURE NARRATOR
Assessment / Plan
Assessment / Plan
NAD
Scleral Anicteric
DMM
No JVD
CTABL
RRR, S1/S2
Soft, NT, ND, BS+, umbilical hernia
Warm, Dry, LLE chronic venostasis changes
AAOx3, no focal neurological deficits on my exam, 5/5 motor strength in bilateral upper and lower extremities
Calm
Mr. Ambrose Davis is a 68 yo man with hx hypothyroidism, PE on Eliquis, DM II, left great toe osteomyelitis s/p amputation who presents to the ER on 06/02 for weakness and confusion.
CXR 06/02
IMPRESSION:
No acute cardiopulmonary process.
Abdomen/Pelvis CT
IMPRESSION:
Asymmetric prominence of the right ureter and areas of patchy heterogeneous right renal enhancement. Findings may indicate ascending infection and possible right pyelonephritis. Suggest correlation with urinalysis. No findings to suggest obstructing
renal calculus.
Simple appearing bilateral pelvic sidewall cystic lesions, left side greater than right. Most likely differential diagnosis would be lymphoceles.
Fat only containing umbilical and supraumbilical anterior abdominal wall hernias, as noted above.
Cholelithiasis.
Small peripherally calcified 'lesion' posteriorly at the T12-L1 level most likely representing a calcified disc extrusion/herniation, less likely meningioma.
HEAD CT
IMPRESSION:
No acute intracranial abnormality.
Small old infarcts, as detailed above.
Sepsis with unclear etiology
- CT does demonstrate concerning findings for pyelonephritis however no CVA tenderness, urine analysis not consistent as there is no white blood cells leuks/nitrates but few bacteria. Additionally, denies dysuria, frequency, suprapubic tenderness
- COVID flu negative
- Follow-up blood cultures, urine culture
- continue IV Zosyn, Vanc d/c'd
- appreciate ID
Chronic CVA noted on CT,�small
- Unaware of this diagnosis
- Smoking history, former quit in the 90s longstanding history of diabetes, along with htn
- Already on aspirin and moderate intensity statin
- LDL 57
Hypothyroidism
- Continue levothyroxine
History of PE
- On Eliquis 2.5 mg p.o. twice daily
Type 2 diabetes with hyperglycemia likely related to underlying acute infectious process
-A1c 8.8%
- Follows with Dr. Lopez as outpatient
- Continue NPH sliding scale
- appreciate DM MOTION PICTURE NARRATOR consult
Hyponatremia
-resolved
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
DNR
Anticipated Discharge: 24 - 48 hours
Subjective/Interval History
-
Date of Service: June 04, 2024
Objective Data
-
Labs:
Laboratory Results
06/04/24
05:52
WBC 8.7
Hgb 11.5 L
Hct 34.8 L
Plt Count 238
Sodium 139
Potassium 4.0
Chloride 108 H
Carbon Dioxide 23
BUN 12
Creatinine 0.6 L
Glucose 277 H
Calcium 9.1
Vital Signs:
Vital Signs
Temp Pulse Resp BP Pulse Ox
98.5 F 75 20 155/69 97
06/04/24 07:40 06/04/24 08:24 06/04/24 07:40 06/04/24 08:24 06/04/24 09:27
I&O
06/03/24 06/04/24 06/05/24
06:59 06:59 06:59
Intake Total 530 / 530 4890 / 4890
Output Total 1750 / 1750 1250 / 1250
Balance -1220 / -1220 3640 / 3640
[2024-06-04] MEDS: NSS IV (11:28)
[2024-06-04 11:34] LABS: Glucose - Point of Care 332 mg/dl (70-99)
[2024-06-04] MEDS: NOVOLOG FLEXPEN-MODERATE RESISTANCE 7 UNITS SC ×2 (11:34→17:08)
--- NOTE | 2024-06-04 12:53 | W.PN.ID1 ---
Date of Service
Date of Service: June 04, 2024
Today's Communication
- Xray of the L foot - cannot exclude osteo
- ordered MRI
- continue zosyn for today
Assessment / Plan
Fever - resolved
Sepsis - resolved
Leukocytosis - resolved
- blood cultures x2 in progress no growth to date
- Xray of the L foot - cannot exclude osteo
- ordered MRI
- continue zosyn for today
Chief Complaint
-: Clinical Sepsis
Subjective / Review of Systems
afebrile
bp stable
Vital Signs / Physical Exam
Vital Signs
Vital Signs
Temp Pulse Resp BP Pulse Ox
98 F 69 20 169/66 98
06/04/24 11:17 06/04/24 11:17 06/04/24 11:17 06/04/24 11:17 06/04/24 11:17
Physical Exam
Constitutional: No Acute Distress
Cardiovascular: Regular Rate and S1/S2; Negative Murmur or Rub
Pulmonary: Clear and Symmetric; Negative Wheezes or Rales
Gastrointestinal: Soft, Non Tender, Non Distended and Normal Bowel Sounds
Skin: Warm and Dry; Negative Rash or Jaundice
Objective Data
Lab Data
Lab Results
06/04/24 05:52
06/04/24 05:52
Estimated Creat Clear > 125 ml/min 06/04/24 05:52
Lactic Acid Cancelled 06/03/24 13:14
Total Bilirubin 1.1 mg/dl (0.2-1.3) 06/02/24 21:53
AST 27 U/L (17-59) 06/02/24 21:53
ALT 24 U/L (0-50) 06/02/24 21:53
Alkaline Phosphatase 122 U/L (38-126) 06/02/24 21:53
Most recent labs reviewed.
Micro Results:
06/02/24 22:15 Urine Culture - Pending
Urine
06/02/24 22:22 Blood Culture - Preliminary
Blood/Venous No Growth in 24 hours- Final report to follow
06/02/24 22:22 Blood Culture - Preliminary
Blood/Venous No Growth in 24 hours- Final report to follow
06/03/24 11:40 Nasal Screen MRSA (PCR) - Final
Nose MRSA not detected - performed by PCR methodology.
06/02/24 22:15 Influenza Types A & B (CASSY) - Final
Nasal Swab Negative for Influenza A & B, NAAT
Negative results must be combined with clinical observations
and patient history.
Nucleic Acid Amplification test (NAAT)performed on the
[employer] platform.
--- NOTE | 2024-06-04 15:19 | PN.CDI ---
CDI
- -
CDI:
Physician Documentation Request
Admit Date: 06/03/24 00:15
Dear Doctor Hermilo,
Please review the following and provide your response in the progress notes.
Clinical Indicators:
The diagnosis of toxic metabolic encephalopathy was documented on 06/02 H&P but is not consistently noted in subsequent documentation.
- 06/02 H&P Update note 'weakness confusion consistent with mild toxic metabolic encephalopathy likely secondary to infection'
- 06/03 PN 'Sepsis'
Please clarify the following:
____ - Toxic metabolic encephalopathy was present on admission and is now resolved.
____ - Toxic metabolic encephalopathy was present on admission and is still being monitored, evaluated or treated
____ - Toxic metabolic encephalopathy was ruled out
____ - Other
Use of terms such as suspected, likely, concern for, or probable (associated with a specific diagnosis that is being evaluated, monitored, or treated as if it exists) are acceptable and can be coded in the inpatient setting, when documented at the
time of discharge.
Thank you,
Jerry Crenshaw RN
CDI Specialist
Please use your independent medical judgment in providing your response.
[2024-06-04 16:48] LABS: Glucose - Point of Care 327 mg/dl (70-99)
[2024-06-04] MEDS: ASPIR LOW (ENTERIC COATED) 81 MG PO (21:22)
[2024-06-04] MEDS: LIPITOR 20 MG PO (21:22)
[2024-06-04] MEDS: ALTACE 10 MG PO (21:22)
[2024-06-04] MEDS: HUMULIN N KWIKPEN 55 UNITS SC (21:23)
[2024-06-04 21:25] LABS: Glucose - Point of Care 297 mg/dl (70-99)
[2024-06-05 03:50] LABS: Glucose - Point of Care 187 mg/dl (70-99)
[2024-06-05 03:55] VITALS: BP 157/65
[2024-06-05] MEDS: ZOSYN 50 IV ×4 (06:04→23:09)
[2024-06-05] MEDS: SYNTHROID 200 MCG PO (06:04)
[2024-06-05 07:00] VITALS: BP 143/59
--- NOTE | 2024-06-05 07:08 | W.PN.HOSP.TC ---
Today's Communication/Plan
-
F/U Foot MRI
IV Zosyn
Appreciate DM SIMULATION ENGINEER
Appreciate ID
Assessment / Plan
Assessment / Plan
NAD
Scleral Anicteric
Mr. Ambrose Davis is a 68 yo man with hx hypothyroidism, PE on Eliquis, DM II, left great toe osteomyelitis s/p amputation who presents to the ER on 06/02 for weakness and confusion.
CXR 06/02
IMPRESSION:
No acute cardiopulmonary process.
Abdomen/Pelvis CT
IMPRESSION:
Asymmetric prominence of the right ureter and areas of patchy heterogeneous right renal enhancement. Findings may indicate ascending infection and possible right pyelonephritis. Suggest correlation with urinalysis. No findings to suggest obstructing
renal calculus.
Simple appearing bilateral pelvic sidewall cystic lesions, left side greater than right. Most likely differential diagnosis would be lymphoceles.
Fat only containing umbilical and supraumbilical anterior abdominal wall hernias, as noted above.
Cholelithiasis.
Small peripherally calcified 'lesion' posteriorly at the T12-L1 level most likely representing a calcified disc extrusion/herniation, less likely meningioma.
HEAD CT
IMPRESSION:
No acute intracranial abnormality.
Small old infarcts, as detailed above.
Foot X-Ray 06/04/24
IMPRESSION:
Prior amputation of the phalanges of the left great toe.
Irregular lobulated appearance of the head of the distal left first metatarsal which may be chronic and the sequela of prior surgery. Osteomyelitis cannot be entirely excluded. Suggest MRI for more complete evaluation.
Sepsis with unclear etiology
- CT does demonstrate concerning findings for pyelonephritis however no CVA tenderness, urine analysis not consistent as there is no white blood cells leuks/nitrates but few bacteria. Additionally, denies dysuria, frequency, suprapubic tenderness
- COVID and flu negative
- foot x-ray with possible osteo (versus sequelae from surgery) - MRI ordered
- Follow-up blood cultures, urine culture
-continue IV Zosyn, Vanc d/c'd
- appreciate ID
Toxic metabolic encephalopathy was present on admission and is now resolved.
Chronic CVA noted on CT,�small
- Unaware of this diagnosis
- Smoking history, former quit in the 90 longstanding history of diabetes, along with HTN
- Already on aspirin and moderate intensity statin
- LDL 57
Hypothyroidism
- Continue levothyroxine
History of PE
- On Eliquis 2.5 mg p.o. twice daily
Type 2 diabetes with hyperglycemia likely related to underlying acute infectious process
-A1c 8.8%
- Follows with Dr. Lopez as outpatient
- Continue NPH sliding scale
- appreciate DM SIMULATION ENGINEER consult
Hyponatremia
-resolved
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
DNR
Anticipated Discharge: 24 - 48 hours
Subjective/Interval History
-
Date of Service: June 05, 2024
BGL better this morning
no pain
Objective Data
-
Labs:
Laboratory Results
06/05/24
06:00
WBC Pending
Hgb Pending
Hct Pending
Plt Count Pending
Sodium Pending
Potassium Pending
Chloride Pending
Carbon Dioxide Pending
BUN Pending
Creatinine Pending
Glucose Pending
Calcium Pending
Vital Signs:
Vital Signs
Temp Pulse Resp BP Pulse Ox
98.2 F 64 21 157/65 97
06/05/24 03:55 06/05/24 03:55 06/05/24 03:55 06/05/24 03:55 06/05/24 03:55
I&O
06/04/24 06/05/24 06/06/24
06:59 06:59 06:59
Intake Total 4890 / 4890 1830 / 1830
Output Total 1250 / 1250 1425 / 1425
Balance 3640 / 3640 405 / 405
Review of Systems
-
History Source: Patient
All other systems: Reviewed and negative
Physical Exam
-
General: No Apparent Distress and Obese
HEENT: Normocephalic, Atraumatic, Moist Mucous Membranes and PERRLA
Respiratory: Clear to Auscultation
Cardiac: Regular Rhythm and S1/S2; Negative Murmur, Rub or JVD
GI: Soft, Nontender, Nondistended and Normal Bowel Sounds
Musculoskeletal: No Clubbing, No Cyanosis and No Edema
Neuro: Awake, Alert, Oriented, No Motor Deficits and Nonfocal/Grossly Intact
Data Reviewed
-
Diagnostic Radiology: Report Reviewed by me
Labs: Labs Reviewed by me
--- NOTE | 2024-06-05 07:29 | PN.DE.MGMTRT ---
Insulin Management
- -
06/05/2024 Diabetes Management Consult Follow up
Patient admitted 06/02 with weakness, confusion - sepsis unknown etiology. PMH PE, HTN, HLD, type 1 diabetes since age 18. Prior to admission was taking 60 units NPH @ HS with SS humalog. A1C 8.8%.
Patient is awake alert and oriented, able to discuss diabetes care. at bedside, very supportive. Patient states he has type 1 diabetes since age [address] Lopez for diabetes care routinely, last visit April 2024, he states A1C was 7.5 at
that time.
06/04 Patient received 10 units AC novolog, glucose range 332 to 350, dinner novolog increased to 15 units with moderate corrective, hs glucose 297. Patient received 55 units NPH @ HS.
06/05 Fasting glucose this AM 187 Patient reports to me that he had already eaten breakfast when this glucose was taken. Will increase HS NPH to 60 units and AC novolog to 20 units; will reduce corrective from moderate to low. Will check 3AM
glucose POC.
Patient has Olga sensor for glucose monitoring.
Nurse reports that patient wanted his insulin injected into his right chest area. I provided a printed sheet on location of insulin injection preferred sites, he states he was taught to inject into a muscle and that is where he always does it.
Explained insulin injections should be in fatty tissue and reviewed the printed sheet with him.
Discussed with nurse.
Will follow.
Diabetes History
- -
Type of Diabetes: 1
Pre-Admission Diabetes Regimen
Lab Results
Hemoglobin A1c 8.8 % (4.0-5.6) H 06/03/24 05:24
Insulin Pump Settings
IP Diabetes Regimen
06/04/24 06/04/24 06/04/24
08:12 08:26 11:33
POC Glucose 350 H 232 H 332 H
06/04/24 06/04/24 06/05/24
16:47 21:19 03:48
POC Glucose 327 H 297 H 187 H
Meal type: Lunch
Meal type: Breakfast
Amount consumed: 100%
Amount consumed: 100%
Patient Education
[2024-06-05 08:07] LABS: Hematocrit 35.5 % (39.0-52.0); Hemoglobin 11.8 g/dL (13.0-18.0); Mean Corp Hgb Conc. 33.2 g/dL (33.0-37.0); Mean Corpuscular Hgb 29.3 pg (27.0-31.0); Mean Corpuscular Volume 88.1 fL (80.0-94.0); Platelet Count 275 10^3/uL (130-400); Red Blood Cell Count 4.03 10^6/uL (4.70-6.10); White Blood Cell Count 6.4 10^3/uL (4.8-10.8)
[2024-06-05 08:08] LABS: Glucose - Point of Care 113 mg/dl (70-99)
[2024-06-05 08:48] LABS: Blood Urea Nitrogen 10 mg/dl (9-20); Calcium 9.3 mg/dl (8.4-10.2); Carbon Dioxide 24 mmol/L (22-30); Chloride 107 mmol/L (98-107); Estimated Creatinine Clearance > 125 ml/min; Glucose 112 mg/dl (70-99); Sodium 140 mmol/L (135-145); eGFR > 60.00
[2024-06-05] MEDS: LOPRESSOR 25 MG PO ×2 (09:22→20:30)
[2024-06-05] MEDS: NOVOLOG FLEXPEN 15 UNITS SC (09:22)
[2024-06-05] MEDS: ELIQUIS 2.5 MG PO ×2 (09:22→20:31)
[2024-06-05] MEDS: NOVOLOG FLEXPEN-MODERATE RESISTANCE SC ×3 (09:22→18:04)
[2024-06-05 11:00] VITALS: BP 160/76
--- NOTE | 2024-06-05 11:16 | W.PN.ID1 ---
Date of Service
Date of Service: June 05, 2024
Today's Communication
await MRI
Assessment / Plan
Fever - resolved
Sepsis - resolved
Leukocytosis - resolved
- blood cultures x2 in progress no growth to date
- Xray of the L foot - cannot exclude osteo
- ordered MRI
- continue zosyn for today
Chief Complaint
-: Clinical Sepsis
Subjective / Review of Systems
afebrile
bp stable
without leukocytosis
Vital Signs / Physical Exam
Vital Signs
Vital Signs
Temp Pulse Resp BP Pulse Ox
98.3 F 66 20 160/76 97
06/05/24 11:00 06/05/24 11:00 06/05/24 11:00 06/05/24 11:00 06/05/24 11:00
Physical Exam
Constitutional: No Acute Distress
Cardiovascular: Regular Rate and S1/S2; Negative Murmur or Rub
Pulmonary: Clear and Symmetric; Negative Wheezes or Rales
Gastrointestinal: Soft, Non Tender, Non Distended and Normal Bowel Sounds
Skin: Warm and Dry; Negative Rash or Jaundice
Objective Data
Lab Data
Lab Results
06/05/24 07:44
06/05/24 07:44
Estimated Creat Clear > 125 ml/min 06/05/24 07:44
Lactic Acid Cancelled 06/03/24 13:14
Total Bilirubin 1.1 mg/dl (0.2-1.3) 06/02/24 21:53
AST 27 U/L (17-59) 06/02/24 21:53
ALT 24 U/L (0-50) 06/02/24 21:53
Alkaline Phosphatase 122 U/L (38-126) 06/02/24 21:53
Most recent labs reviewed.
Micro Results:
06/02/24 22:22 Blood Culture - Preliminary
Blood/Venous No Growth in 48 hours- Final report to follow
06/02/24 22:22 Blood Culture - Preliminary
Blood/Venous No Growth in 48 hours- Final report to follow
06/02/24 22:15 Urine Culture - Pending
Urine
06/03/24 11:40 Nasal Screen MRSA (PCR) - Final
Nose MRSA not detected - performed by PCR methodology.
06/02/24 22:15 Influenza Types A & B (CASSY) - Final
Nasal Swab Negative for Influenza A & B, NAAT
Negative results must be combined with clinical observations
and patient history.
Nucleic Acid Amplification test (NAAT)performed on the
[employer] platform.
[2024-06-05 11:43] LABS: Glucose - Point of Care 116 mg/dl (70-99)
--- NOTE | 2024-06-05 12:21 | CM ---
Per therapy notes, patient doing well and functioning close to baseline. Will update patient as to the possibility of home health when discharged if he is agreeable.
Plan: Case management will continue to follow and assist with discharge planning. Home, with VN if patient agreeable and it is still indicated at time of d/c.
[2024-06-05] MEDS: NOVOLOG FLEXPEN 20 UNITS SC ×2 (12:26→18:20)
[2024-06-05 12:38] LABS: Glucose - Point of Care 84 mg/dl (70-99)
--- NOTE | 2024-06-05 13:06 | PTCARENOTE ---
Patient asked RN to administer Insulin into his chest. RN explained Insulin is administered into SQ sites only. Patient states, 'I have had diabetes for 25 years and Insulin has to go into a muscle.' DM educator made aware and reinforced SQ
administration sites. Patient OOB with min assist and a walker. Patient tolerating 100% of meals.
[2024-06-05 15:50] VITALS: BP 165/73
[2024-06-05 17:36] LABS: Glucose - Point of Care 105 mg/dl (70-99)
[2024-06-05] MEDS: ASPIR LOW (ENTERIC COATED) 81 MG PO (20:30)
[2024-06-05] MEDS: LIPITOR 20 MG PO (20:30)
[2024-06-05] MEDS: ALTACE 10 MG PO (20:30)
[2024-06-05 21:23] LABS: Glucose - Point of Care 211 mg/dl (70-99)
[2024-06-05] MEDS: HUMULIN N KWIKPEN 60 UNITS SC (21:43)
[2024-06-05 23:55] VITALS: BP 149/61
[2024-06-06] MEDS: SYNTHROID 200 MCG PO (05:52)
[2024-06-06] MEDS: ZOSYN 50 IV ×2 (05:52→12:36)
[2024-06-06 07:00] VITALS: BP 164/73
--- NOTE | 2024-06-06 07:15 | PN.DE.MGMTRT ---
Insulin Management
- -
06/06/2024 Diabetes Management Consult Follow up
Patient admitted 06/02 with weakness, confusion - sepsis unknown etiology. PMH PE, HTN, HLD, type 1 diabetes since age 18. Prior to admission was taking 60 units NPH @ HS with SS humalog. A1C 8.8%.
Patient is awake alert and oriented, able to discuss diabetes care. Patient states he has type 1 diabetes since age [address] Lopez for diabetes care routinely, last visit April 2024, he states A1C was 7.5 at that time.
06/05 Fasting glucose this AM 187 Patient reports to me that he had already eaten breakfast when this glucose was taken. Will increase HS NPH to 60 units and AC novolog to 20 units; will reduce corrective from moderate to low.
06/06 3AM glucose not obtained. Fasting glucose this AM 281. Glucose range yesterday 84 to 211 @ HS. Will continue 20 units novolog ac with low corrective and NPH 60 units @ HS. Discussed with patient his carb choices, he has 94 grams of CHO for
breakfast. Explained importance of weight loss and recommended 60 to 70 grams of carb per meal.
Requested 3AM glucose tonight.
Patient has Olga sensor for glucose monitoring.
Nurse reports that patient wanted his insulin injected into his right chest area. I provided a printed sheet on location of insulin injection preferred sites, he states he was taught to inject into a muscle and that is where he always does it.
Explained insulin injections should be in fatty tissue and reviewed the printed sheet with him.
Discussed with nurse.
Will follow.
Diabetes History
- -
Type of Diabetes: 1
Pre-Admission Diabetes Regimen
06/05/24
07:44
Creatinine 0.6 L
Lab Results
Hemoglobin A1c 8.8 % (4.0-5.6) H 06/03/24 05:24
Insulin Pump Settings
IP Diabetes Regimen
06/05/24 06/05/24 06/05/24
07:44 08:06 11:41
Glucose 112 H
POC Glucose 113 H 116 H
06/05/24 06/05/24 06/05/24
12:36 17:34 21:21
Glucose
POC Glucose 84 105 H 211 H
Meal type: Lunch
Meal type: Breakfast
Amount consumed: 100%
Amount consumed: 100%
Patient Education
[2024-06-06 08:11] LABS: Glucose - Point of Care 281 mg/dl (70-99)
[2024-06-06] MEDS: NOVOLOG FLEXPEN-MODERATE RESISTANCE 5 UNITS SC (08:44)
[2024-06-06] MEDS: NOVOLOG FLEXPEN 20 UNITS SC ×3 (08:45→17:08)
[2024-06-06] MEDS: ELIQUIS 2.5 MG PO (08:46)
[2024-06-06] MEDS: LOPRESSOR 25 MG PO (08:46)
--- NOTE | 2024-06-06 11:46 | W.PN.HOSP.TC ---
Today's Communication/Plan
-
follow up further ID recs
Assessment / Plan
Assessment / Plan
NAD
Scleral Anicteric
Mr. Ambrose Davis is a 68 yo man with hx hypothyroidism, PE on Eliquis, DM II, left great toe osteomyelitis s/p amputation who presents to the ER on 06/02 for weakness and confusion admitted for sepsis; and hyperglycemia control.
CXR 06/02
IMPRESSION:
No acute cardiopulmonary process.
Abdomen/Pelvis CT
IMPRESSION:
Asymmetric prominence of the right ureter and areas of patchy heterogeneous right renal enhancement. Findings may indicate ascending infection and possible right pyelonephritis. Suggest correlation with urinalysis. No findings to suggest obstructing
renal calculus.
Simple appearing bilateral pelvic sidewall cystic lesions, left side greater than right. Most likely differential diagnosis would be lymphoceles.
Fat only containing umbilical and supraumbilical anterior abdominal wall hernias, as noted above.
Cholelithiasis.
Small peripherally calcified 'lesion' posteriorly at the T12-L1 level most likely representing a calcified disc extrusion/herniation, less likely meningioma.
HEAD CT
IMPRESSION:
No acute intracranial abnormality.
Small old infarcts, as detailed above.
Foot X-Ray 06/04/24
IMPRESSION:
Prior amputation of the phalanges of the left great toe.
Irregular lobulated appearance of the head of the distal left first metatarsal which may be chronic and the sequela of prior surgery. Osteomyelitis cannot be entirely excluded. Suggest MRI for more complete evaluation.
LE MRI 06/06/24
FINDINGS/impression:
Post amputation absence of the first digit.
There is no abnormal bone marrow signal intensity or enhancement to indicate osteomyelitis. No occult fracture.
Generalized edema of the subcutaneous soft tissues especially along the dorsum of the foot and medial hindfoot.
No focal soft tissue collection or abscess.
Mild degenerative changes are noted. Degenerative changes of the subchondral joint with mild subchondral cystic changes present. Small degenerative subchondral cyst of the navicular.
Sepsis with unclear etiology
- CT does demonstrate concerning findings for pyelonephritis however no CVA tenderness, urine analysis not consistent as there is no white blood cells leuks/nitrates but few bacteria. Additionally, denies dysuria, frequency, suprapubic tenderness
- COVID and flu negative
- foot x-ray with possible osteo (versus sequelae from surgery) - MRI ordered - no e/o osteo
- Follow-up blood cultures, urine culture
-continue IV Zosyn, Vanc d/c'd
- appreciate ID- F/U further recs
Toxic metabolic encephalopathy was present on admission and is now resolved.
Chronic CVA noted on CT,�small
- Unaware of this diagnosis
- Smoking history, former quit in the longstanding history of diabetes, along with HTN
- Already on aspirin and moderate intensity statin
- LDL 57
Hypothyroidism
- Continue levothyroxine
History of PE
- On Eliquis 2.5 mg p.o. twice daily
Type 2 diabetes with hyperglycemia likely related to underlying acute infectious process
-A1c 8.8%
- Follows with Dr. Lopez as outpatient
- Continue NPH sliding scale
- appreciate DM [employer] consult
Hyponatremia
-resolved
DVT PPx : MIS DIRECTOR Eliquis
DNR
Anticipated Discharge: Within 24 hours
Subjective/Interval History
-
Date of Service: June 06, 2024
Objective Data
-
Vital Signs:
Vital Signs
Temp Pulse Resp BP Pulse Ox
98.0 F 70 18 164/73 94
06/06/24 07:00 06/06/24 08:46 06/06/24 07:00 06/06/24 08:46 06/06/24 08:38
I&O
06/05/24 06/06/24 06/07/24
06:59 06:59 06:59
Intake Total 1830 / 1830 1470 / 1470
Output Total 1425 / 1425 875 / 875
Balance 405 / 405 595 / 595
[2024-06-06 12:26] LABS: Glucose - Point of Care 249 mg/dl (70-99)
[2024-06-06] MEDS: NOVOLOG FLEXPEN-MODERATE RESISTANCE 3 UNITS SC ×2 (12:35→17:07)
[2024-06-06] MEDS: FLUSH (NSS) 1 FLUSH IV (12:36)
--- NOTE | 2024-06-06 13:48 | W.PN.ID1 ---
Date of Service
Date of Service: June 06, 2024
Today's Communication
- MRI no evidence of osteomyelitis
- no other source of fevers identified on workup, suspect viral cause, stopped antibiotics, if any relapse patient will call PCP or represent; stable for dc from ID perspective
Assessment / Plan
Fever - resolved
Sepsis - resolved
Leukocytosis - resolved
- blood cultures x2 in progress no growth to date
- MRI no evidence of osteomyelitis
- no other source of fevers identified on workup, suspect viral cause, stopped antibiotics, if any relapse patient will call PCP or represent; stable for dc from ID perspective
Chief Complaint
-: Clinical Sepsis
Subjective / Review of Systems
remains afebrile
bp stable
no complaints
Vital Signs / Physical Exam
Vital Signs
Vital Signs
Temp Pulse Resp BP Pulse Ox
98.0 F 70 18 164/73 94
06/06/24 07:00 06/06/24 08:46 06/06/24 07:00 06/06/24 08:46 06/06/24 08:38
Physical Exam
Constitutional: No Acute Distress and Chronically Ill
Cardiovascular: Regular Rate and S1/S2; Negative Murmur or Rub
Pulmonary: Clear and Symmetric; Negative Wheezes or Rales
Gastrointestinal: Soft, Non Tender, Non Distended and Normal Bowel Sounds
Skin: Warm and Dry; Negative Rash or Jaundice
Objective Data
Lab Data
Lab Results
06/05/24 07:44
06/05/24 07:44
Estimated Creat Clear > 125 ml/min 06/05/24 07:44
Lactic Acid Cancelled 06/03/24 13:14
Total Bilirubin 1.1 mg/dl (0.2-1.3) 06/02/24 21:53
AST 27 U/L (17-59) 06/02/24 21:53
ALT 24 U/L (0-50) 06/02/24 21:53
Alkaline Phosphatase 122 U/L (38-126) 06/02/24 21:53
Most recent labs reviewed.
Micro Results:
06/02/24 22:22 Blood Culture - Preliminary
Blood/Venous No Growth in 72 hours- Final report to follow
06/02/24 22:22 Blood Culture - Preliminary
Blood/Venous No Growth in 72 hours- Final report to follow
06/02/24 22:15 Urine Culture - Final
Urine NO GROWTH
06/03/24 11:40 Nasal Screen MRSA (PCR) - Final
Nose MRSA not detected - performed by PCR methodology.
06/02/24 22:15 Influenza Types A & B ([facility]) - Final
Nasal Swab Negative for Influenza A & B, NAAT
Negative results must be combined with clinical observations
and patient history.
Nucleic Acid Amplification test (NAAT)performed on the
[employer] platform.
Care Review
Plan reviewed with: Physician (Dr Akhtar - disposition)
--- NOTE | 2024-06-06 14:32 | W.DS.TRANS ---
DC Summary - Proration Clerk
-
Discharge Instructions:
Discharge Diagnosis/Procedures Hyperglycemia, Sepsis secondary to likely viral
infection
Diet Diabetic, Carb Controlled
Activity As tolerated
Driving Restrictions As prior to admission
Other Services VN,PT
Instructions:
Stand-Alone Forms:
Changes to Home Medications: No
Discharge Medications:
DC Medications w/original date entered in [employer]
furosemide 20 mg tablet 20 mg PO DAILYPRN PRN leg swelling,edema,increased water wt 10/22/14
metoprolol tartrate 25 mg tablet 25 mg PO BID Heart disease/condition 10/22/14
ramipril 10 mg capsule 10 mg PO HS Blood pressure 10/22/14
aspirin 81 mg tablet,delayed release 81 mg PO HS Blood clot prevention/tx 12/11/21
insulin NPH isoph U-100 human 100 unit/mL subcutaneous suspension (Humulin N NPH U-100 Insulin (isophane susp)) 60 unit SC HS Diabetes 12/11/21
insulin lispro 100 unit/mL subcutaneous solution (Humalog U-100 Insulin) 0 sliding scale dose SC MEALS Diabetes 12/11/21
levothyroxine 200 mcg tablet 200 mcg PO DAILY Thyroid 12/11/21
simvastatin 40 mg tablet 40 mg PO HS High cholesterol 12/11/21
apixaban 5 mg tablet (Eliquis) 2.5 mg PO BID 06/02/24
Home Medication Changes
Pending Results: No
--- NOTE | 2024-06-06 14:33 | W.DCSUMMARY ---
Discharge Summary
Discharge Data
Date of Admission: 06/03/24
Date of Discharge: 06/06/24
-
Pending Results: No
Hospital Course
Discharging Physician : Dr. Raissa Akhtar
Disposition : Home with VN
Primary care physician : Dr. Dallas Rangel
Principal Discharge diagnosis : Sepsis 2/2 Viral infection; Hyperglycemia
Hospital Course :
Mr. Ambrose Davis is a 68 yo man with hx hypothyroidism, PE on Eliquis, DM II, left great toe osteomyelitis s/p amputation who presents to the ER on 06/02 for weakness and confusion.
In the emergency department he had a Tmax of 101.5, blood pressure was 160/60 with a pulse of 104. Respiratory was 27. He was satting 95% on room air. Chest x-ray shows no acute infiltrates. He hadleukocytosis to 15, hemoglobin and platelets
were normal. Electrolytes were normal. Glucose was elevated at 396. Head CT without acute abnormalities, small old infarcts. CXR without acure process. CT A/P obtained which showed findings concerning for possible right pyelonephritis, but
clinically patient had no dysuria/CVA tenderness/ and a negative UA for infection.
He was admitted to medicine for treatment of TME and Hyperglycemia 2/2 Sepsis. 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 He received IV Unasyn. Cultures remained negative. Infectious source further worked up; MRI foot obtained which was negative for
osteomyelitis. With negative work-up, antibiotics were stopped.
His insulin regimen was adjusted per DM AUTOMOTIVE MACHINIST APPRENTICE. He received home NPH 60 units qhs and Novolog 20 pre-meals with sliding scale.
He worked with PT and HH recommended.
Time spent on discharge was 35 minutes.
Important imaging findings :
CXR 06/02
IMPRESSION:
No acute cardiopulmonary process.
Abdomen/Pelvis CT
IMPRESSION:
Asymmetric prominence of the right ureter and areas of patchy heterogeneous right renal enhancement. Findings may indicate ascending infection and possible right pyelonephritis. Suggest correlation with urinalysis. No findings to suggest obstructing
renal calculus.
Simple appearing bilateral pelvic sidewall cystic lesions, left side greater than right. Most likely differential diagnosis would be lymphoceles.
Fat only containing umbilical and supraumbilical anterior abdominal wall hernias, as noted above.
Cholelithiasis.
Small peripherally calcified 'lesion' posteriorly at the T12-L1 level most likely representing a calcified disc extrusion/herniation, less likely meningioma.
HEAD CT
IMPRESSION:
No acute intracranial abnormality.
Small old infarcts, as detailed above.
Foot X-Ray 06/04/24
IMPRESSION:
Prior amputation of the phalanges of the left great toe.
Irregular lobulated appearance of the head of the distal left first metatarsal which may be chronic and the sequela of prior surgery. Osteomyelitis cannot be entirely excluded. Suggest MRI for more complete evaluation.
LE MRI 06/06/24
FINDINGS/impression:
Post amputation absence of the first digit.
There is no abnormal bone marrow signal intensity or enhancement to indicate osteomyelitis. No occult fracture.
Generalized edema of the subcutaneous soft tissues especially along the dorsum of the foot and medial hindfoot.
No focal soft tissue collection or abscess.
Mild degenerative changes are noted. Degenerative changes of the subchondral joint with mild subchondral cystic changes present. Small degenerative subchondral cyst of the navicular.
Procedure findings :
Discharge Plan
-
Patient Disposition: Home (Routine Discharge)
Discharge Diagnosis/Procedures: Hyperglycemia, Sepsis secondary to likely viral infection
Diet: Diabetic, Carb Controlled
Activity: As tolerated
Driving Restrictions: As prior to admission
Other Services: VN and PT
Referrals:
Dallas Rangel MD [Family Provider] - in less than 1 week
Additional Discharge Medication Instructions: Insulin regimen in the hospital: NPH 60 units at bedtime; Novolog 20 units pre-meals with sliding scale
Prescriptions:
Continued
furosemide 20 MG tablet
20 mg PO DAILYPRN PRN (Reason: leg swelling,edema,increased water wt)
ramipril 10 MG capsule
10 mg PO HS
metoprolol tartrate 25 MG tablet
25 mg PO BID
aspirin 81 mg Tablet,Delayed Release (Dr/Ec)
81 mg PO HS
simvastatin 40 mg Tablet
40 mg PO HS
Humulin N NPH U-100 Insulin 100 unit/mL suspension
60 unit SC HS
levothyroxine 200 mcg Tablet
200 mcg PO DAILY
insulin lispro [Humalog U-100 Insulin] 100 unit/mL solution
0 sliding scale dose SC MEALS
Eliquis 5 mg tablet
2.5 mg PO BID
Rx Instructions:
Start after 10mg BID pills finished
Discharge Orders:
Discharge Patient (As Directed); Ordered 06/06/24
Ordered By: Raissa Akhtar
Discharge Date and Time
Print Language: NEPALI
[2024-06-06 15:00] VITALS: BP 142/57
--- NOTE | 2024-06-06 15:12 | CM ---
Met with patient. Reviewed IMM. It is signed and on chart. Patient stated that he does not want VN services and that his is home and can support him. PT updated.
Plan: Case management will continue to follow and assist with discharge planning. Home no needs.
--- NOTE | 2024-06-06 16:20 | PTCARENOTE ---
Pt AAO x3, CODY; OOB to chair/ambulatory in room with minimal assistance/walker; david well. VSS. On room air- pulse ox 99%, pt with (+) slight CARLSON; denies SOB. Abd obese, soft, david Po well. Voids in urinal without difficulty; pt also has stress
incont. Resting in chair at present, no c/o. Will continue to monitor. Pt for DC to home later this shift.
[2024-06-06 16:26] LABS: Glucose - Point of Care 218 mg/dl (70-99)
== END 2024-06-06 17:34 | disposition home or self-care (01) | DRG 871 ==
LOC: 4 EAST ACU 00:15
PROVIDERS: Hospitalist; Physician Assistant; Registered Nurse; ADMITTING PHYSICIAN Internal Medicine; ATTENDING PHYSICIAN Student in an Organized Health Care Education/Training Program; CONSULT PHYSICIAN Student in an Organized Health Care Education/Training Program; EMERGENCY PHYSICIAN Emergency Medicine; FAMILY PHYSICIAN Internal Medicine
DX: A41.9 Sepsis, unspecified organism (principal); G92.8 Other toxic encephalopathy; E10.65 Type 1 diabetes mellitus with hyperglycemia; Z89.412 Acquired absence of left great toe; E03.9 Hypothyroidism, unspecified; G47.30 Sleep apnea, unspecified; I10 Essential (primary) hypertension; E78.5 Hyperlipidemia, unspecified; Z96.652 Presence of left artificial knee joint; Z79.4 Long term (current) use of insulin; Z79.82 Long term (current) use of aspirin; Z79.890 Hormone replacement therapy; Z79.01 Long term (current) use of anticoagulants; E66.812 Obesity, class 2; Z68.38 Body mass index [BMI] 38.0-38.9, adult; K80.20 Calculus of gallbladder without cholecystitis without obstruction; Z66 Do not resuscitate; Z86.711 Personal history of pulmonary embolism; Z11.52 Encounter for screening for COVID-19
CPT/HCPCS: 70450; 71046; 73630; 73720; 74177; 80048; 80053; 80061; 81003; 81015; 82947; 82962; 83036; 83605; 85025; 85027; 87040; 87086; 87502; 87641; 87811; 93005; 96361; 96365; 96366; 96367; 97116; 97162; 97166; 99285; A9575; A9585; Q9967

== ENCOUNTER 2024-10-14 15:46 | Emergency (ER) | payer MEDICARE, OTHER, SELFPAY ==
[2024-10-14 15:52] VITALS: BP 109/77
--- NOTE | 2024-10-14 17:23 | ED.GENMED ---
History of Present Illness
General
Chief Complaint: Skin Surface Trauma
Time Seen by Provider: 10/14/24 16:26
History of Present Illness
History of Present Illness:
69-year-old male presents to the emergency department for evaluation of a right lower leg laceration when his leg became crushed between 2 pieces of metal and farm equipment. He is on Eliquis. Bleeding is controlled with pressure. Last tetanus is
unknown. He is able to ambulate
Review of Systems
Review of Systems
Allergies reviewed?: Yes
All Other Systems: ROS reviewed and negative except as documented in HPI and ROS
Phy Exam
Physical Exam
Physical Exam:
GEN: Well appearing, NAD, WDWN
HEENT: Oral mucosa moist, no scleral icterus
Cardiac: Regular rate
Lung: No respiratory distress, no tachypnea
MSK: No gross deformity or injuries. Mild swelling about the right ankle however no tenderness to the medial or lateral malleolus
Skin: Good color, no pallor or jaundice, 9 cm flap laceration to the right lower medial leg, no visible osseous or muscular tissue, no large foreign bodies but moderate debris is noted within the wound, no active bleeding
Neuro: AO x3, moves all extremities freely
Psych: Calm, cooperative
Course
Orders/Labs/Results
Orders:
Orders
10/14/24 15:56
CR Leg Tibia/fibula Right 2 Vw Urgent
Comment:
Reason For Exam: crushing injury with skin laceration
10/14/24 17:22
Tetanus/Diphth/Acelpertussis [Adacel] 0.5 ml IM .ONCE ONE
10/14/24 17:23
Cephalexin Monohydrate [Keflex] 500 mg PO NOW STA
10/14/24 17:24
Oxycodone/Acetaminophen [Percocet 5/325] 1 tablet PO NOW STA
Vital Signs
Initial and Last Documented VS:
Initial Vital Signs
Temp Pulse Resp BP Pulse Ox
98.1 F 80 18 109/77 99
10/14/24 15:52 10/14/24 15:52 10/14/24 15:52 10/14/24 15:52 10/14/24 15:52
Last Documented Vital Signs
Temp Pulse Resp BP Pulse Ox
98.1 F 80 18 109/77 99
10/14/24 15:52 10/14/24 15:52 10/14/24 17:57 10/14/24 15:52 10/14/24 17:24
Procedures
Laceration Closure
Right lower leg:
Status of Wound: dirty
Size of Wound in cm: 9
Description of Wound Edges: flap-well vascularized
Preparation: cleaned with soap & water and cleaned with saline
Anesthesia: 1% Lidocaine with epi
Wound exploration: extensive cleaning of contaminated wound and no tendon involvement
Type of Closure: single layer closure
Number of sutures: 13
Additional information:
Inferior aspects of the flap closed with 3-0 and 4-0 nylon sutures however upper portion of the wound with significant epidermal loss and will require healing by secondary intent
MDM/Problems Addressed
MDM/Problems Addressed:
The wound at the upper portion will require secondary intention healing and will refer to wound care/plastics for evaluation of this. Will cover with antibiotics due to contamination of the wound, tetanus updated. X-rays do suggest an avulsion
fracture of the lateral fibula distally however the patient has no focal pain there and notes that he has been 'treated for an ankle sprain' for the past several weeks, this may be old
*Pulse Oximetry
SaO2: 99
Oxygen Mode of Delivery: Room air
Patient hypoxic: no
*Critical Care Note
Total Time (30-74mins, 75-104mins- exclusive of procedures): Not Applicable
ED Attending Note
-
Portions of this chart may have been created with voice recognition software.� Occasional wrong word or��sound alike� substitutions may have occurred due to the inherent limitations of voice recognition software.
Discharge Plan
Departure
Patient Disposition: Home (Routine Discharge)
Date of Disposition: 10/14/24
Time of Disposition: 17:23
Patient with high blood pressure during this ER visit?: No
Discharge Problem:
Laceration of right lower extremity
Instructions: Laceration Repair With Stitches (DC)
Prescriptions:
New
cephalexin 500 mg capsule
500 mg PO Q8H 5 Days Qty: 15 0RF
No Action
furosemide 20 MG tablet
20 mg PO DAILYPRN PRN (Reason: leg swelling,edema,increased water wt)
ramipril 10 MG capsule
10 mg PO HS
metoprolol tartrate 25 MG tablet
25 mg PO BID
aspirin 81 mg Tablet,Delayed Release (Dr/Ec)
81 mg PO HS
simvastatin 40 mg Tablet
40 mg PO HS
Humulin N NPH U-100 Insulin 100 unit/mL suspension
60 unit SC HS
levothyroxine 200 mcg Tablet
200 mcg PO DAILY
insulin lispro [Humalog U-100 Insulin] 100 unit/mL solution
0 sliding scale dose SC MEALS
Eliquis 5 mg tablet
2.5 mg PO BID
Rx Instructions:
Start after 10mg BID pills finished
Referrals:
Facundo Brito MD [Active, Plastic Surgery]
Dallas Rangel MD [Family Provider, Internal Medicine]
Activity Restrictions/Additional Instructions:
Change dressing each day and wash with soap and water. Replace with the yellow Xeroform bandage before wrapping the leg. Minimize physical activity for the next 48 hours. Sutures will need to be removed in about 14 days, however you should
follow-up with wound care within that timeframe for reevaluation of the wound
Interventions
Interventions:
*Risk Screen - Suicide Last Done: 10/14/24 15:52
*General Assessment Last Done: 10/14/24 15:52
*Neglect/Abuse Screening Last Done: 10/14/24 15:52
*Nursing Disposition Last Done: 10/14/24 17:57
ED-Skin Assessment Last Done: 10/14/24 16:49
Discharge Date and Time
Discharge Date/Time: 10/14/24 17:58
Print Language: GHANAIAN
[2024-10-14] MEDS: ADACEL 0.5 ML IM (17:29)
[2024-10-14] MEDS: PERCOCET 5/325 1 TABLET PO (17:30)
[2024-10-14] MEDS: KEFLEX 500 MG PO (17:30)
== END 2024-10-14 17:58 | disposition home or self-care (01) ==
LOC: EMR 15:46
PROVIDERS: EMERGENCY PHYSICIAN Emergency Medicine; FAMILY PHYSICIAN Internal Medicine
DX: S81.811A Laceration without foreign body, right lower leg, initial encounter (principal); W23.0XXA Caught, crushed, jammed, or pinched between moving objects, initial encounter; Z23 Encounter for immunization; Z79.01 Long term (current) use of anticoagulants
CPT/HCPCS: 99283; 12004; 90471; 73590; 90715

== ENCOUNTER → 2024-10-18 08:16 | Outpatient (REF) | payer MEDICARE, OTHER, SELFPAY | LOC: WOUND 08:16 | PROVIDERS: ATTENDING PHYSICIAN Surgery; FAMILY PHYSICIAN Internal Medicine | DX: S81.811A Laceration without foreign body, right lower leg, initial encounter (principal); L97.212 Non-pressure chronic ulcer of right calf with fat layer exposed; E11.9 Type 2 diabetes mellitus without complications; I10 Essential (primary) hypertension; W01.198A Fall on same level from slipping, tripping and stumbling with subsequent striking against other object, initial encounter | CPT/HCPCS: 99204 ==

== ENCOUNTER → 2024-10-29 10:17 | Outpatient (REF) | payer MEDICARE, OTHER, SELFPAY | LOC: WOUND 10:17 | PROVIDERS: ATTENDING PHYSICIAN Surgery; FAMILY PHYSICIAN Internal Medicine | DX: S81.811A Laceration without foreign body, right lower leg, initial encounter (principal); L97.212 Non-pressure chronic ulcer of right calf with fat layer exposed; E11.9 Type 2 diabetes mellitus without complications; I10 Essential (primary) hypertension; W01.198A Fall on same level from slipping, tripping and stumbling with subsequent striking against other object, initial encounter | CPT/HCPCS: 99213 ==

== ENCOUNTER → 2024-11-05 10:15 | Outpatient (REF) | payer MEDICARE, OTHER, SELFPAY | LOC: WOUND 10:15 | PROVIDERS: ATTENDING PHYSICIAN Surgery; FAMILY PHYSICIAN Internal Medicine | DX: S81.811A Laceration without foreign body, right lower leg, initial encounter (principal); L97.212 Non-pressure chronic ulcer of right calf with fat layer exposed; E11.9 Type 2 diabetes mellitus without complications; I10 Essential (primary) hypertension; W01.198A Fall on same level from slipping, tripping and stumbling with subsequent striking against other object, initial encounter | CPT/HCPCS: 11042; 11045 ==

== ENCOUNTER → 2024-11-13 11:16 | Outpatient (REF) | payer MEDICARE, OTHER, SELFPAY | LOC: WOUND 11:16 | PROVIDERS: ATTENDING PHYSICIAN Surgery; FAMILY PHYSICIAN Internal Medicine | DX: S81.811A Laceration without foreign body, right lower leg, initial encounter (principal); L97.212 Non-pressure chronic ulcer of right calf with fat layer exposed; E10.9 Type 1 diabetes mellitus without complications; I10 Essential (primary) hypertension; W18.39XA Other fall on same level, initial encounter | CPT/HCPCS: 11042; 11045 ==

== ENCOUNTER → 2024-11-19 09:23 | Outpatient (REF) | payer MEDICARE, OTHER, SELFPAY | LOC: WOUND 09:23 | PROVIDERS: ATTENDING PHYSICIAN Surgery; REFERRING PHYSICIAN Internal Medicine | DX: S81.811A Laceration without foreign body, right lower leg, initial encounter (principal); L97.212 Non-pressure chronic ulcer of right calf with fat layer exposed; E10.9 Type 1 diabetes mellitus without complications; I10 Essential (primary) hypertension; W01.0XXA Fall on same level from slipping, tripping and stumbling without subsequent striking against object, initial encounter | CPT/HCPCS: 11042; 11045 ==

== ENCOUNTER → 2024-11-26 09:17 | Outpatient (REF) | payer MEDICARE, OTHER, SELFPAY | LOC: WOUND 09:17 | PROVIDERS: ATTENDING PHYSICIAN Surgery; FAMILY PHYSICIAN Internal Medicine | DX: S81.811A Laceration without foreign body, right lower leg, initial encounter (principal); L97.212 Non-pressure chronic ulcer of right calf with fat layer exposed; E10.9 Type 1 diabetes mellitus without complications; I10 Essential (primary) hypertension | CPT/HCPCS: 11042; 11045 ==

== ENCOUNTER → 2024-12-03 08:48 | Outpatient (REF) | payer MEDICARE, OTHER, SELFPAY | LOC: WOUND 08:48 | PROVIDERS: ATTENDING PHYSICIAN Surgery; FAMILY PHYSICIAN Internal Medicine | DX: S81.811A Laceration without foreign body, right lower leg, initial encounter (principal); L97.212 Non-pressure chronic ulcer of right calf with fat layer exposed; E10.9 Type 1 diabetes mellitus without complications; I10 Essential (primary) hypertension; X58.XXXA Exposure to other specified factors, initial encounter | CPT/HCPCS: 11042; 11045 ==

== ENCOUNTER → 2024-12-17 10:52 | Outpatient (REF) | payer MEDICARE, OTHER, SELFPAY | LOC: WOUND 10:52 | PROVIDERS: ATTENDING PHYSICIAN Surgery; FAMILY PHYSICIAN Internal Medicine | DX: S81.811A Laceration without foreign body, right lower leg, initial encounter (principal); L97.212 Non-pressure chronic ulcer of right calf with fat layer exposed; E10.9 Type 1 diabetes mellitus without complications; I10 Essential (primary) hypertension; W01.198A Fall on same level from slipping, tripping and stumbling with subsequent striking against other object, initial encounter | CPT/HCPCS: 99213 ==

== ENCOUNTER → 2024-12-24 10:23 | Outpatient (REF) | payer MEDICARE, OTHER, SELFPAY | LOC: WOUND 10:23 | PROVIDERS: ATTENDING PHYSICIAN Surgery; FAMILY PHYSICIAN Internal Medicine | DX: S81.811A Laceration without foreign body, right lower leg, initial encounter (principal); L97.212 Non-pressure chronic ulcer of right calf with fat layer exposed; E10.9 Type 1 diabetes mellitus without complications; I10 Essential (primary) hypertension; W01.198A Fall on same level from slipping, tripping and stumbling with subsequent striking against other object, initial encounter | CPT/HCPCS: 99213 ==

== ENCOUNTER → 2024-12-31 10:25 | Outpatient (REF) | payer MEDICARE, OTHER, SELFPAY | LOC: WOUND 10:25 | PROVIDERS: ATTENDING PHYSICIAN Surgery; FAMILY PHYSICIAN Internal Medicine | DX: S81.811A Laceration without foreign body, right lower leg, initial encounter (principal); L97.212 Non-pressure chronic ulcer of right calf with fat layer exposed; E10.9 Type 1 diabetes mellitus without complications; I10 Essential (primary) hypertension; W01.198A Fall on same level from slipping, tripping and stumbling with subsequent striking against other object, initial encounter | CPT/HCPCS: 99213 ==

== ENCOUNTER 2025-01-07 10:31 | Outpatient (REF) | payer MEDICARE, OTHER, SELFPAY | END 2025-01-07 23:59 | disposition home or self-care (01) | LOC: WOUND 10:31 | PROVIDERS: ATTENDING PHYSICIAN Surgery; FAMILY PHYSICIAN Internal Medicine | DX: S81.811A Laceration without foreign body, right lower leg, initial encounter (principal); L97.212 Non-pressure chronic ulcer of right calf with fat layer exposed; E10.9 Type 1 diabetes mellitus without complications; I10 Essential (primary) hypertension; W18.49XA Other slipping, tripping and stumbling without falling, initial encounter | CPT/HCPCS: 11042; 11045 ==

== ENCOUNTER 2025-01-21 10:13 | Outpatient (REF) | payer MEDICARE, OTHER, SELFPAY | END 2025-01-21 23:59 | disposition home or self-care (01) | LOC: WOUND 10:13 | PROVIDERS: ATTENDING PHYSICIAN Registered Nurse; FAMILY PHYSICIAN Internal Medicine | DX: S81.811A Laceration without foreign body, right lower leg, initial encounter (principal); L97.212 Non-pressure chronic ulcer of right calf with fat layer exposed; E10.9 Type 1 diabetes mellitus without complications; I10 Essential (primary) hypertension | CPT/HCPCS: 97597 ==

== ENCOUNTER 2025-01-28 08:48 | Outpatient (REF) | payer MEDICARE, OTHER, SELFPAY | END 2025-01-28 23:59 | disposition home or self-care (01) | LOC: WOUND 08:48 | PROVIDERS: ATTENDING PHYSICIAN Registered Nurse; FAMILY PHYSICIAN Internal Medicine | DX: S81.811A Laceration without foreign body, right lower leg, initial encounter (principal); L97.212 Non-pressure chronic ulcer of right calf with fat layer exposed; E10.9 Type 1 diabetes mellitus without complications; I10 Essential (primary) hypertension; W01.198A Fall on same level from slipping, tripping and stumbling with subsequent striking against other object, initial encounter | CPT/HCPCS: 97597 ==

== ENCOUNTER 2025-02-11 08:53 | Outpatient (REF) | payer MEDICARE, OTHER, SELFPAY | END 2025-02-11 23:59 | disposition home or self-care (01) | LOC: WOUND 08:53 | PROVIDERS: ATTENDING PHYSICIAN Registered Nurse; FAMILY PHYSICIAN Internal Medicine | DX: S81.811A Laceration without foreign body, right lower leg, initial encounter (principal); L97.212 Non-pressure chronic ulcer of right calf with fat layer exposed; E10.9 Type 1 diabetes mellitus without complications; I10 Essential (primary) hypertension; W01.198A Fall on same level from slipping, tripping and stumbling with subsequent striking against other object, initial encounter | CPT/HCPCS: 97597 ==